=== PATIENT | female | born 1975 | race Caucasian/White ===

== ENCOUNTER 2019-05-18 10:14 | Emergency (ER) | payer OTHER, SELFPAY ==
[2019-05-18 10:15] VITALS: BP 158/83; PULSE 60; RESP 16; TEMP 36.4; O2SAT 100; BMI 36.2
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
== END 2019-05-18 11:16 | disposition home or self-care (01) ==
PROVIDERS: Emergency Provider Emergency Medicine; Family Provider Family Medicine; PCP Family Medicine
DX: S90.01XA Contusion of right ankle, initial encounter (principal); W03.XXXA Other fall on same level due to collision with another person, initial encounter; Y93.9 Activity, unspecified; Y92.9 Unspecified place or not applicable; Y99.0 Civilian activity done for income or pay; Z87.891 Personal history of nicotine dependence
CPT/HCPCS: 73610; 99282

== ENCOUNTER 2019-08-25 10:33 | Emergency (ER) | payer SELFPAY ==
[2019-08-25 10:34] VITALS: BP 147/86; PULSE 76; RESP 17; TEMP 36.7; BMI 37.6
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
[2019-08-25] MEDS: Ibuprofen 600 MG Tablet PO (11:18)
[2019-08-25] MEDS: diazePAM 5 MG Tablet PO (11:22)
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
== END 2019-08-25 13:06 | disposition home or self-care (01) ==
PROVIDERS: Emergency Provider Emergency Medicine; Family Provider Family Medicine; PCP Family Medicine
DX: S46.812A Strain of other muscles, fascia and tendons at shoulder and upper arm level, left arm, initial encounter (principal); S09.90XA Unspecified injury of head, initial encounter; S13.4XXA Sprain of ligaments of cervical spine, initial encounter; M62.830 Muscle spasm of back; S20.211A Contusion of right front wall of thorax, initial encounter; V53.5XXA Driver of pick-up truck or van injured in collision with car, pick-up truck or van in traffic accident, initial encounter; Y93.9 Activity, unspecified; Y92.9 Unspecified place or not applicable; Y99.9 Unspecified external cause status
CPT/HCPCS: 71046; 99283